=== PATIENT | female | born 1985 | race Caucasian/White ===

== ENCOUNTER → 2021-02-12 14:41 | Outpatient (CLI) | payer OTHER, MEDICAID, SELFPAY ==
--- NOTE | 2021-02-12 14:47 | DI.US.S_ITS ---
PROCEDURE: US OB <= 14 WEEKS FETUS INDICATIONS: INITIAL SIZING AND DATING. OUTSIDE/PRIOR DATING DATA: Last menstrual period (LMP): 12/25/2020. LMP-based estimated date of delivery (YAMILA): 10/01/2021. First dating scan (date and location): 02/12/2021. Estimated date of delivery (YAMILA) from first dating scan: 09/28/2020. TECHNIQUE: Real-time scanning was performed of the fetus and maternal pelvic organs, with image documentation. Endovaginal scanning was also performed to better visualize the fetus and maternal ovaries. COMPARISON: None. FINDINGS: Embryo: Single live intrauterine is identified with crown-rump length measuring 1.2 cm corresponding to 7 weeks 3 days. It is noted the gestational sac appears slightly irregular. Heart rate: 155 beats per minute Measurement variability in dating: +/- 4 weeks by LMP, +/- 7 days by mean sac diameter (use before 6 weeks gestation if crown-rump length not able to be measured), +/- 5 days by crown-rump length (up to 8 weeks 6 days gestation), +/- 7 days by crown-rump length (up to 13 weeks 6 days gestation). Maternal organs: Ovaries demonstrate a right corpus luteal cyst. Prominent follicle versus small cyst is noted within the left ovary. . IMPRESSION: 1. Single live intrauterine with ultrasound gestational age of 7 weeks 3 days. 2. Gestational sac is slightly irregular. Recommend follow-up imaging as clinically indicated. Dictated by: Aissatou Salazar M.D. on 02/12/2021 at 17:11 Approved by: Aissatou Salazar M.D. on 02/12/2021 at 17:13
== END ==
PROVIDERS: Family Provider Family Medicine; PCP Family Medicine; Referring Provider Family Medicine; Visit Provider Family Medicine
DX: Z34.90 Encounter for supervision of normal pregnancy, unspecified, unspecified trimester (principal); Z3A.01 Less than 8 weeks gestation of pregnancy
CPT/HCPCS: 76801; 76830

== ENCOUNTER → 2021-03-06 15:57 | Outpatient (CLI) | payer OTHER, MEDICAID, SELFPAY ==
--- NOTE | 2021-03-06 | DI.US.S_ITS ---
PROCEDURE: US OB <= 14 WEEKS FETUS INDICATIONS: FOLLOW UP GS, YS OUTSIDE/PRIOR DATING DATA: Last menstrual period (LMP): 12/25/2020 LMP-based estimated date of delivery (YAMILA): 10/01/2021. First dating scan (date and location): 02/12/2021. Estimated date of delivery (YAMILA) from first dating scan: 11/26/2021. TECHNIQUE: Real-time scanning was performed of the fetus and maternal pelvic organs, with image documentation. Endovaginal scanning was also performed to better visualize the fetus and maternal ovaries. COMPARISON: [facility], , OB <= 14 WEEKS FETUS, 02/12/2021, 14:59. FINDINGS: Embryo: [place]-rump length measures 4.2 cm corresponding to 11 weeks 1 day. Heart rate: 169 Measurement variability in dating: +/- 4 weeks by LMP, +/- 7 days by mean sac diameter (use before 6 weeks gestation if crown-rump length not able to be measured), +/- 5 days by crown-rump length (up to 8 weeks 6 days gestation), +/- 7 days by crown-rump length (up to 13 weeks 6 days gestation). Maternal organs: Ovaries within normal limits, with right corpus luteal cyst . IMPRESSION: Single living IUP redemonstrated with YAMILA of 09/28/2021 and gestational sac appearing normal on today's exam. Dictated by: Fabiano Underwood MERGED WITH [facility] Interpreted: Arturo Mcdonald MD on 03/06/2021 at 17:10 Transcribed by: ROBER on 03/06/2021 at 17:11 Approved by: Arutro Mcdonald M.D. on 03/06/2021 at 18:07
== END ==
PROVIDERS: Family Provider Family Medicine; PCP Family Medicine; Referring Provider Family Medicine; Visit Provider Family Medicine
DX: Z36.2 Encounter for other antenatal screening follow-up (principal)
CPT/HCPCS: 76801; 76817

== ENCOUNTER → 2021-05-22 14:23 | Outpatient (CLI) | payer OTHER, MEDICAID, SELFPAY ==
--- NOTE | 2021-05-22 14:25 | DI.US.S_ITS ---
PROCEDURE: US OB >= 14 WEEKS FETUS INDICATIONS: Encounter for supervision of other normal pregnanc OUTSIDE/PRIOR DATING DATA: Last menstrual period (LMP): 12/25/2020. LMP-based estimated date of delivery (YAMILA): 10/01/2021. First dating scan (date and location): 02/12/2021 [facility]. Estimated date of delivery (YAMILA) from first dating scan: 09/28/2021. The calculations are made using the ultrasound derived YAMILA of 09/28/2021. TECHNIQUE: Real-time scanning was performed of the fetus, with image documentation and biometric measurements. COMPARISON: None. FINDINGS: General: A single living intrauterine gestation is present. Presentation: Cephalic. Placenta: Placental position is posterior , without previa. Amniotic fluid index: 10.8 cm, normal range is 5-24 cm. heart rate: 135 beats per minute. Maternal cervical canal: 4.3 cm long. Normal lower limit is 2.5 cm. biometrics: Biparietal diameter: 5.2 cm. 21 weeks 5 days Head circumference: 19.3 cm. 21 weeks 4 days Abdominal circumference: 17.2 cm. 22 weeks 1 day Femur length: 3.8 cm. 22 weeks 1 day Clinically estimated gestational age: 21 weeks 4 days Composite gestational age from present scan: 21 weeks 6 days Estimated weight and percentile: 472 g. 70th percentile Anatomic survey: Neuro: Ventricles are non-dilated at less than 10 mm. Cisterna magna is normal at 3-11 mm. Cerebellum is normal in size and morphology. Nuchal skin fold: Nuchal fold is above normal limits measuring 6.2 mm, however visualization is difficult due to positioning. Face: Not well visualized Spine: No evidence for spina bifida. Heart: 4-chambered heart is present, with normal ventricular outflow tracts. Diaphragm: Diaphragm is intact. Stomach: Left-sided stomach is present. Kidneys: No hydronephrosis. Normal is less than 5 mm in 2nd trimester, less than 7 mm in 3rd trimester. Cord: Three-vessel cord with insertion approximately 2.2 cm from the a edge. There is an adjacent venous jennings in the superior placenta. Bladder: Normal in size. Extremities: All 4 extremities identified. IMPRESSION: 1. Single live intrauterine with a estimated gestational age of 21 weeks 6 days from current ultrasound. 2. Thickened nuchal fold of 6.2 mm with the upper limits of normal being 6 mm, however the nuchal fold was difficult to measure due to technical factors. This is a 2nd trimester marker for Down's syndrome. Recommend correlation with other clinical data and markers. We strive to produce accurate, complete, and clear reports of imaging services. To assist us in improving patient care, this report was composed using standard report templates and voice recognition software. Therefore, it may contain abnormal punctuation, insertions and/or omissions. Occasional wrong-word or sound-alike substitutions may occur. Though we review the report and make efforts to correct it, we do recommend that the report be read carefully in proper context to recognize any text inaccuracies. Dictated by: Vrial Love M.D. on 05/22/2021 at 15:42 Approved by: Viral Love M.D. on 05/22/2021 at 15:57
== END ==
PROVIDERS: Family Provider Family Medicine; PCP Family Medicine; Referring Provider Student in an Organized Health Care Education/Training Program; Visit Provider Student in an Organized Health Care Education/Training Program
DX: Z3A.21 21 weeks gestation of pregnancy; Z34.82 Encounter for supervision of other normal pregnancy, second trimester
CPT/HCPCS: 76811

== ENCOUNTER → 2021-07-02 15:44 | Outpatient (CLI) | payer OTHER, MEDICAID, SELFPAY ==
--- NOTE | 2021-07-02 | DI.US.S_ITS ---
PROCEDURE: US OB >= 14 WEEKS FETUS INDICATIONS: FOLLOW UP NUCHAL FOLD, FACE OUTSIDE/PRIOR DATING DATA: Last menstrual period (LMP): 12/25/2020 LMP-based estimated date of delivery (YAMILA): 10/01/2021. First dating scan (date and location): 02/12/2021 at . Estimated date of delivery (YAMILA) from first dating scan: 09/28/2021. The calculations are made using the ultrasound YAMILA of 09/28/2021. TECHNIQUE: Real-time scanning was performed of the fetus, with image documentation and biometric measurements. Endovaginal scanning: Not performed COMPARISON: [facility], OB <= 14 WEEKS FETUS, 03/06/2021, 16:18. [facility], OB >= 14 WEEKS FETUS, 05/22/2021, 14:35. FINDINGS: General: A single living intrauterine gestation is present. Presentation: Cephalic. Placenta: Placental position is posterior left , without previa. Lower placental edge 2 cm or less from internal cervical os qualifies as low lying placenta. Amniotic fluid index: 19.5 cm, normal range is 5-24 cm. Single deepest vertical pocket is 7.0 cm. heart rate: 143 beats per minute. Maternal cervical canal: 5.0 cm long. Normal lower limit is 2.5 cm. Report any funneling of internal cervical os: % of canal length, shape (U or V), width or any U-shaped funneling. biometrics: Not performed. Clinically estimated gestational age: 27 weeks 3 days. Anatomic survey: Nuchal skin fold: Nuchal 7.6 mm (Normal at less than 6 mm, during 14-21 weeks gestational age). IMPRESSION: 1. A single living intrauterine gestation redemonstrated. 2. Nuchal fold measures 7.2 mm on the current exam (at 27 weeks 3 days gestational age). Typically, nuchal fold is only measured during 14-21 weeks. We strive to produce accurate, complete, and clear reports of imaging services. To assist us in improving patient care, this report was composed using standard report templates and voice recognition software. Therefore, it may contain abnormal punctuation, insertions and/or omissions. Occasional wrong-word or sound-alike substitutions may occur. Though we review the report and make efforts to correct it, we do recommend that the report be read carefully in proper context to recognize any text inaccuracies. Dictated by: Arturo Mcdonald M.D. on 07/02/2021 at 17:18 Approved by: Arturo Mcdonald M.D. on 07/02/2021 at 17:26
== END ==
PROVIDERS: Family Provider Family Medicine; PCP Family Medicine; Referring Provider Student in an Organized Health Care Education/Training Program; Visit Provider Student in an Organized Health Care Education/Training Program
DX: Z36.2 Encounter for other antenatal screening follow-up (principal); Z3A.27 27 weeks gestation of pregnancy
CPT/HCPCS: 76811

== ENCOUNTER → 2021-09-12 12:44 | Outpatient (ROUT) | payer OTHER, MEDICAID, SELFPAY | PROVIDERS: Visit Provider Student in an Organized Health Care Education/Training Program | DX: Z34.80 Encounter for supervision of other normal pregnancy, unspecified trimester (principal) | CPT/HCPCS: 87081 ==

== ENCOUNTER → 2024-08-01 15:05 | Outpatient (CLI) | payer OTHER, SELFPAY ==
--- NOTE | 2024-08-01 15:07 | DI.US.S_ITS ---
PROCEDURE: US OB <= 14 WEEKS FETUS INDICATIONS: DATES OUTSIDE/PRIOR DATING DATA: Last menstrual period (LMP): Unknown LMP-based estimated date of delivery (YAMILA): N/A First dating scan (date and location): 08/01/2024 Estimated date of delivery (YAMILA) from first dating scan: 02/03/2025 TECHNIQUE: Real-time scanning was performed of the fetus, with image documentation and biometric measurements. Endovaginal scanning: Not performed COMPARISON: None. FINDINGS: General: A single living intrauterine gestation is present. Presentation: Variable Placenta: Placental position is anterior, without previa. heart rate: 163 beats per minute. biometrics: Biparietal diameter: 2.3 cm, 13 weeks 5 days Head circumference: 8.6 cm, 13 weeks 6 days Abdominal circumference: 6.9 cm, 13 weeks 3 days Femur length: 0.9 cm, 12 weeks 6 days Composite gestational age from present scan: 13 weeks 3 days IMPRESSION: 1. Single live intrauterine with estimated gestational age of 13 weeks 3 days corresponding to an ultrasound YAMILA of 02/03/2025. 2. Recommend follow-up anatomic survey at 18-20 weeks gestational age. Approved by: Jake Flowers M.D. on 08/01/2024 at 16:46
== END ==
PROVIDERS: PCP Family Medicine; Referring Provider Family Medicine; Visit Provider Family Medicine
DX: Z34.91 Encounter for supervision of normal pregnancy, unspecified, first trimester (principal); Z3A.13 13 weeks gestation of pregnancy
CPT/HCPCS: 76801